=== PATIENT | male | born 1960 | race Caucasian/White ===

== ENCOUNTER 2017-03-05 12:18 | Emergency (ER) | payer OTHER, MEDICARE ==
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
== END 2017-03-05 15:50 | disposition home or self-care (01) ==
LOC: ER 12:18
PROC: 08QPXZZ Repair Left Upper Eyelid, External Approach (ICD-10-PCS; principal; 2017-03-05)
DX: S01.112A Laceration without foreign body of left eyelid and periocular area, initial encounter (principal); S39.012A Strain of muscle, fascia and tendon of lower back, initial encounter; J44.9 Chronic obstructive pulmonary disease, unspecified; Z86.711 Personal history of pulmonary embolism; Z79.01 Long term (current) use of anticoagulants; Z88.8 Allergy status to other drugs, medicaments and biological substances; Z79.899 Other long term (current) drug therapy; V47.5XXA Car driver injured in collision with fixed or stationary object in traffic accident, initial encounter